=== PATIENT | female | born 1960 ===

== ENCOUNTER 2018-04-12 06:56 | Outpatient (CLI) | payer MEDICARE | END 2018-04-12 06:57 | disposition home or self-care (01) | LOC: CARDIO 06:56 | DX: E11.9 Type 2 diabetes mellitus without complications (principal); I10 Essential (primary) hypertension; Z79.899 Other long term (current) drug therapy; M32.9 Systemic lupus erythematosus, unspecified; I08.1 Rheumatic disorders of both mitral and tricuspid valves; M20.41 Other hammer toe(s) (acquired), right foot; R07.89 Other chest pain ==